=== PATIENT | female | born 1980 | race Caucasian/White ===

== ENCOUNTER 2017-08-15 11:02 | Emergency (ER) | payer BC, OTHER ==
[~2017-08-15] VITALS: Wt 63.6 kg
--- NOTE | 2017-08-15 12:29 | RADRPT ---
PROCEDURE: US Pelvis CLINICAL INDICATION: Vaginal bleeding, . TECHNIQUE: Transabdominal and transvaginal sonographic evaluation of the pelvis was performed. COMPARISON: None available. FINDINGS: Myometrium is heterogeneous in echotexture without fibroids. Endometrium is homogeneous and mildly prominent. No gestational sac identified. Ovaries are normal in size and echotexture. There is a 3.5 x 2.8 x 3.5 cm left ovarian cyst. No free pelvic fluid. MEASUREMENTS: Uterus: 8.4 x 4.4 x 5.2 cm, anteverted. Endometrium: 2.5 mm. Right ovary size: 2.0 x 1.1 x 1.2 cm. Left ovary size: 4.6 x 3.5 x 3.9 cm. IMPRESSION: 1. No evidence of an intrauterine gestation. An early IUP, missed AB or ectopic could have this appe arance. 2. 3.5 x 2.8 x 3.5 cm unilocular left ovarian cyst. Note: Continued surveillance with serial quantitative beta HCGs and follow-up ultrasound may be leticia ropriate. RPTAT: AACC Physician Olvin Date Time Electronically viewed and signed by Physician Olvin on 08/15/2017 12:29 /
--- NOTE | 2017-08-15 13:24 | ERD ---
ER Documentation Chief Complaint Chief Complaint vb, unsure if preg HPI This is a 36-year-old female who is here for vaginal bleeding and think she is . She had a positive test done 2 days ago. She says she is having some vaginal spotting with occasional cramps but no clots no pain now her last period was July 06, 2017. She is a ROS All systems reviewed and are negative except as per history of present illness. Allergies Allergies: Coded Allergies: No Known Allergy (Unverified , 08/15/17) PMhx/Soc Medical and Surgical Hx: pt denies Medical Hx, pt denies Surgical Hx Hx Alcohol Use: No Hx Substance Use: No Hx Tobacco Use: No Smoking Status: Never smoker FmHx Family History: No coronary disease Physical Exam Vitals Vital Signs Date Time Temp Pulse Resp B/P Pulse Ox O2 Delivery O2 Flow Rate FiO2 08/15/17 11:12 98.3 93 20 131/75 100 Physical Exam Const: Well-developed, well-nourished Head: Atraumatic, normocephalic Eyes: Normal Conjunctiva, PERRLA, EOMI, normal sclera, no nystagmus ENT: Normal External Ears, Nose and Mouth, moist mucus membranes. Neck: Full range of motion. No meningismus, no lymphadenopathy. Resp: Clear to auscultation bilaterally, no wheezing, rhonchi, rales Cardio: Regular rate and rhythm, no murmurs, S1 S2 present Abd: Soft, non tender x 4, non distended. Normal bowel sounds, no guarding or rebound, no pulsitile abdominal masses or bruits Skin: No petechiae or rashes, no ecchymosis , no maculopapular rash Back: No midline or flank tenderness Ext: No cyanosis, or edema, FROM x 4, normal inspection, neurovascularly intact x 4 Neur: Awake and alert, STR 5/5 x 4, sensation intact x 4, no focal findings, cerebellum intact Psych: Normal Mood and Affect Results 24 hrs Laboratory Tests Test 08/15/17 11:45 Beta HCG, Quantitative 520.6mIU/ml Procedures/MDM PROCEDURE: US Pelvis CLINICAL INDICATION: Vaginal bleeding, . TECHNIQUE: Transabdominal and transvaginal sonographic evaluation of the pelvis was performed. COMPARISON: None available. FINDINGS: Myometrium is heterogeneous in echotexture without fibroids. Endometrium is homogeneous and mildly prominent. No gestational sac identified. Ovaries are normal in size and echotexture. There is a 3.5 x 2.8 x 3.5 cm left ovarian cyst. No free pelvic fluid. MEASUREMENTS: Uterus: 8.4 x 4.4 x 5.2 cm, anteverted. Endometrium: 2.5 mm. Right ovary size: 2.0 x 1.1 x 1.2 cm. Left ovary size: 4.6 x 3.5 x 3.9 cm. IMPRESSION: 1. No evidence of an intrauterine gestation. An early IUP, missed AB or ectopic could have this appearance. 2. 3.5 x 2.8 x 3.5 cm unilocular left ovarian cyst. Note: Continued surveillance with serial quantitative beta HCGs and follow-up ultrasound may be appropriate. RPTAT: AACC Physician Olvin Date Time Electronically viewed and signed by Garett Blair Physician on 08/15/2017 12: 29 JH/ CC: CUATE KOHLI DO Patient's beta is 520. She likely has an early IUP versus miscarriage. She will have to follow up and get a repeat hCG to assess there is rising or falling in 48 hours Discussed with her vaginally precautions and ectopic morning Departure Diagnosis: Primary Impression: Threatened Condition: Stable Patient Instructions: Possible Miscarriage (Threatened ) CUATE KOHLI DO Aug 15, 2017 13:24
== END 2017-08-15 13:31 | disposition home or self-care (01) ==
LOC: FTE 11:02
DX: O20.0 Threatened abortion (principal); Z3A.00 Weeks of gestation of pregnancy not specified
CPT/HCPCS: 36415; 76801; 76817; 84702; 86900; 86901

== ENCOUNTER 2017-08-24 16:39 | Observation (INO) | payer BC ==
[~2017-08-24] VITALS: Ht 165.1 cm; Wt 64.3 kg
[2017-08-24 17:58] LABS: BASOPHIL # 0.1 10^3/ul (0.0-0.1); BASOPHILS % 0.5 % (0.0-2.0); EOSINOPHILS # 0.2 10^3/ul (0.0-0.5); EOSINOPHILS % 1.4 % (0.0-7.0); HEMATOCRIT 45.2 % (37.0-47.0); HEMOGLOBIN 15.1 g/dl (12.0-16.0); LYMPHOCYTES % 25.7 % (15.0-51.0); MEAN CORPUSCULAR HEMOGLOBIN 30.3 pg (29.0-33.0); MEAN CORPUSCULAR HGB CONC 33.4 g/dl (32.0-37.0); MEAN CORPUSCULAR VOLUME 90.8 fl (82.0-101.0); MEAN PLATELET VOLUME 8.9 fl (7.4-10.4); MONOCYTE # 0.6 10^3/ul (0.3-0.9); MONOCYTES % 5.4 % (0.0-11.0); NEUTROPHIL # 7.8 10^3/ul (1.6-7.5); NEUTROPHILS % 66.7 % (39.0-77.0); PLATELET COUNT 402 10^3/UL (140-415); RED BLOOD COUNT 4.98 10^6/ul (4.20-5.40); RED CELL DISTRIBUTION WIDTH 12.2 % (11.5-14.5); WHITE BLOOD COUNT 11.7 10^3/ul (4.8-10.8)
[2017-08-24] MEDS ORDERED: DEXAMETHASONE 10 MG/ML 1 ML INJ IM ONE (18:00)
[2017-08-24 18:05] LABS: ADD UMIC YES; UR ASCORBIC ACID NEGATIVE (NEGATIVE); UR BACTERIA FEW /HPF (NONE SEEN); UR BILIRUBIN (Dip) NEGATIVE (NEGATIVE); UR BLOOD (Dip) 3+ mg/dL (NEGATIVE); UR CLARITY CLEAR (CLEAR); UR COLOR STRAW (YELLOW); UR GLUCOSE (Dip) NEGATIVE (NEGATIVE); UR KETONES (Dip) NEGATIVE (NEGATIVE); UR LEUKOCYTE ESTERASE (Dip) NEGATIVE Leu/ul (NEGATIVE); UR NITRITE (Dip) NEGATIVE (NEGATIVE); UR RBC 42 /HPF (0-5); UR SPECIFIC GRAVITY (Dip) 1.013 (1.003-1.030); UR TOTAL PROTEIN (Dip) NEGATIVE (NEGATIVE); UR UROBILINOGEN (Dip) NEGATIVE (NEGATIVE)
--- NOTE | 2017-08-24 18:55 | RADRPT ---
PROCEDURE: OB Ultrasound. CLINICAL INDICATION: Positive test. Vaginal bleeding. TECHNIQUE: Ultrasound of the pelvis was performed with transabdominal and transvaginal sonography in the axial and sagittal planes. COMPARISON: No prior study is available for comparison. FINDINGS: There is no intrauterine gestational sac. The uterus measures approximately 6.5 x 4.0 cm. Endometria l thickness is 10 mm. There is a hypoechoic fibroid anteriorly in the uterus measuring 0.8 cm. The right ovary appears normal in size measuring 3.0 x 1.8 x 1.9 cm. There is a hyperechoic nodule in the right ovary measuring 1.7 x 1.8 cm consistent with a probable dermoid. The left ovary measures 4.9 x 3.0 x 3.8 cm. There is a benign-appearing left ovarian cyst measuring 4.5 x 3.0 x 3.5 cm. There are no internal echoes or septations. Color Doppler and pulsed Doppler sonography demonstrate normal flow to the ovaries. There is no other pelvic mass or free fluid. IMPRESSION: 1. No intrauterine gestational sac. If the patient has a positive test, ectopic gestation cannot be excluded. 2. Hypoechoic fibroid anteriorly in the uterus measuring 0.8 cm. 3. Hyperechoic nodule in the right ovary measuring 1.7 x 0.8 cm consistent with a probable dermoid. 4. Benign-appearing left ovarian cyst measuring 4.5 x 3.0 x 3.5 cm. Due to the size, follow-up ultr asound in 6 weeks is advised. RPTAT: QQ .Stefan Travis MD, Date Time Electronically viewed and signed by .Stefan Travis MD, on 08/24/2017 18:54 .R/
[2017-08-24] MEDS ORDERED: ONDANSETRON 4 MG INJ IV PRN (20:00)
[2017-08-24] MEDS ORDERED: ACETAMINOPHEN 325 MG TAB PO PRN (20:00)
[2017-08-24 21:34] VITALS: TEMP 98.3
[2017-08-24 22:00] VITALS: BP 139/73; PULSE 76; RESP 18; Ht 165.1 cm; Wt 64.3 kg
--- NOTE | 2017-08-24 22:15 | HP ---
Date/Time of Note Date/Time of Note DATE: 08/24/17 TIME: 22:12 Assessment/Plan Assessment/Plan Chief Complaint/Hosp Course Vaginal bleeding positive test. HCG non-discriminatory no IUP visualized. Ultrasound nondiagnostic Problems: Assessment/Plan Cannot rule out SAB, versus ectopic Patient will be admitted for observation consider repeat HCG in 12 in 24 hours. If shows 50% or more drop, likely it is a miscarriage otherwise needs to be followed by repeat hCG in 48 hours,, for trend Strict pad count Currently vitals are stable. No evidence of free fluid in the pelvis Plan of care discussed with the patient HPI/ROS Admit Date/Time Admit Date/Time Aug 24, 2017 at 19:54 Hx of Present Illness 36 years old presented with complaint of lower abdominal pain and vaginal light bleeding after 6 weeks and 3 days amenorrhea. Patient reports was unplanned and will was undesired. Had an episode of vaginal bleeding about a week ago which was seen in ED had an ultrasound. That showed no evidence of IUP hCG level. 8 days ago about 500s. Today hCG is 1300s range. Ultrasound showed no clear evidence of IUP. There is a simple 4 x 3 cm right ovarian cyst noted. There is no free fluid in the pelvis. Patient denies any shortness of breath, chest pain, dizziness or lightheadedness. 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 Per patient had D&C and resolved. Denies any history of STD or PID Past Surgical History Past surgical history: None Family History Significant Family History: no pertinent family hx Social History Alcohol Use: none Smoking Status: Never smoker Drug Use: none Exam/Review of Systems Vital Signs Vitals Vital Signs Date Time Temp Pulse Resp B/P Pulse Ox O2 Delivery O2 Flow Rate FiO2 08/24/17 21:34 98.3 89 18 135/88 100 Exam Constitutional: alert, oriented, well developed Psych: nl mood/affect, no complaints Head: atraumatic, normocephalic Eyes: EOMI, nl conjunctiva, nl lids ENMT: nl external ears & nose Neck: supple Respiratory: clear to auscultation Cardiovascular: nl pulses, regular rate and rhythm Gastrointestinal: soft Genitourinary - Female: nl adnexae, other (There is a questionable cervical motion tenderness in movement of the cervix toward the right side noted. No uterine tenderness, no tenderness in adnexa. Speculum examination: Cervix appeared to be 1/2 cm open. Scant amount of blood in the vault. No abnormal vaginal discharge noted.) Extremities: normal pulses Labs Result Diagram: 08/24/17 1746 PROSPER MAYER MD Aug 24, 2017 22:15
[2017-08-24] MEDS ORDERED: morphine 2 MG INJ IV PRN (22:30)
--- NOTE | 2017-08-24 22:58 | ERD ---
ER Documentation Chief Complaint Chief Complaint VAG BLEED AND PELVIC PAIN TODAY(), LMP 07/10/17 HPI 36-year-old female complaining of vaginal bleeding and pelvic pain 1 week. Patient denies any clots. G2 p.o. A1. VAULT KEEPER is Dr. Whitfield. Has a history of ectopic in the past. She has not had an ultrasound to this point. LN July 10, 2017. Denies medical problems. NKDA. Surgical history: Denies. Up-to-date on vaccinations. Social history: Denies ROS All systems reviewed and are negative except as per history of present illness. Allergies Allergies: Coded Allergies: No Known Allergy (Unverified , 08/15/17) PMhx/Soc History of Surgery: No Anesthesia Reaction: No Hx Neurological Disorder: No Hx Respiratory Disorders: No Hx Cardiac Disorders: No Hx Psychiatric Problems: No Hx Miscellaneous Medical Probl: No Hx Alcohol Use: No Hx Substance Use: No Hx Tobacco Use: No Smoking Status: Never smoker Physical Exam Vitals Vital Signs Date Time Temp Pulse Resp B/P Pulse Ox O2 Delivery O2 Flow Rate FiO2 08/24/17 16:42 98.8 88 18 149/93 100 Physical Exam GENERAL: The patient is well-appearing, well-nourished, in no acute distress CHEST: Clear to auscultation bilaterally. There are no rales, wheezes or rhonchi. HEART: Regular rate and rhythm. No murmurs, clicks, rubs or gallops. No S3 or S4. ABDOMEN: Nondistended. Tender to palpation diffusely over the lower pelvis. No lateralized tenderness to palpation. Normoactive bowel sounds. BACK: No midline or flank tenderness. Result Diagram: 08/24/17 1746 Results 24 hrs Laboratory Tests Test 08/24/17 17:46 White Blood Count 11.710^3/ul Red Blood Count 4.9810^6/ul Hemoglobin 15.1g/dl Hematocrit 45.2% Mean Corpuscular Volume 90.8fl Mean Corpuscular Hemoglobin 30.3pg Mean Corpuscular Hemoglobin Concent 33.4g/dl Red Cell Distribution Width 12.2% Platelet Count 76450^3/UL Mean Platelet Volume 8.9fl Neutrophils % 66.7% Lymphocytes % 25.7% Monocytes % 5.4% Eosinophils % 1.4% Basophils % 0.5% Nucleated Red Blood Cells % 0.0/100WBC Neutrophils # 7.810^3/ul Lymphocytes # 3.010^3/ul Monocytes # 0.610^3/ul Eosinophils # 0.210^3/ul Basophils # 0.110^3/ul Nucleated Red Blood Cells # 0.010^3/ul Urine Color STRAW Urine Clarity CLEAR Urine pH 7.0 Urine Specific [place] 1.013 Urine Ketones NEGATIVEmg/dL Urine Nitrite NEGATIVEmg/dL Urine Bilirubin NEGATIVEmg/dL Urine Urobilinogen NEGATIVEmg/dL Urine Leukocyte Esterase NEGATIVELeu/ul Urine Microscopic RBC 42/HPF Urine Microscopic WBC 2/HPF Urine Bacteria FEW/HPF Urine Hemoglobin 3+mg/dL Urine Glucose NEGATIVEmg/dL Urine Total Protein NEGATIVEmg/dl Beta HCG, Quantitative 1386.3mIU/ml Current Medications Medications (Trade) Dose Ordered Sig/Huy Route PRN Reason Start Time Stop Time Status Last Admin Dose Admin Dexamethasone (Decadron) 10 mg ONCE ONCE IM 08/24/17 18:00 08/24/17 18:00 DC Procedures/MDM DIAGNOSTIC IMAGING REPORT Patient: ZHAO URRUTIA : 1980 Age: 36 Sex: F MR #: [id number] DOS: 08/24/17 1736 Ordering MD: RANI LIMA PA-C Location: [facility] Room/Bed: PROCEDURE: OB Ultrasound. CLINICAL INDICATION: Positive test. Vaginal bleeding. TECHNIQUE: Ultrasound of the pelvis was performed with transabdominal and transvaginal sonography in the axial and sagittal planes. COMPARISON: No prior study is available for comparison. FINDINGS: There is no intrauterine gestational sac. The uterus measures approximately 6.5 x 4.0 cm. Endometrial thickness is 10 mm. There is a hypoechoic fibroid anteriorly in the uterus measuring 0.8 cm. The right ovary appears normal in size measuring 3.0 x 1.8 x 1.9 cm. There is a hyperechoic nodule in the right ovary measuring 1.7 x 1.8 cm consistent with a probable dermoid. The left ovary measures 4.9 x 3.0 x 3.8 cm. There is a benign-appearing left ovarian cyst measuring 4.5 x 3.0 x 3.5 cm. There are no internal echoes or septations. Color Doppler and pulsed Doppler sonography demonstrate normal flow to the ovaries. There is no other pelvic mass or free fluid. IMPRESSION: 1. No intrauterine gestational sac. If the patient has a positive test, ectopic gestation cannot be excluded. 2. Hypoechoic fibroid anteriorly in the uterus measuring 0.8 cm. 3. Hyperechoic nodule in the right ovary measuring 1.7 x 0.8 cm consistent with a probable dermoid. 4. Benign-appearing left ovarian cyst measuring 4.5 x 3.0 x 3.5 cm. Due to the size, follow-up ultrasound in 6 weeks is advised. ER Course: Dr. lCark was consulted and visited patient at bedside. There is concern for possible ectopic given patient does have an increased beta quant from her previous visit 8 days ago. Patient has pelvic masses noted on ultrasound and no intrauterine . Patient will be admitted for recheck of beta quant to determine if her levels are increasing or decreasing based on possible ectopic or miscarriage. Patient will be admitted. Vitals are stable MDM: 36-year-old female complaining of bleeding with positive test. Patient does not have intrauterine patient on ultrasound and has elevated beta quant levels so I cannot rule out ectopic at this time. Patient is admitted under the care of Dr. Clark for repeat beta quant levels and further evaluation. Patient is stable. Vital signs are stable. I have low suspicion for a ruptured ectopic . I have low suspicion for other acute abdominal emergencies at this time. Exams are non-concerning. Departure Diagnosis: Primary Impression: Vaginal bleeding Ruled Out: Ectopic Condition: Serious AISSATOU LIMA PA-C Aug 24, 2017 22:58
[2017-08-25] MEDS: DEXTROSE 5%-LR 1,000 ML IV SCH ×5 (00:04→20:47)
[2017-08-25 02:17] VITALS: BP 102/57; RESP 18
[2017-08-25 05:23] LABS: BASOPHILS % 0.4 % (0.0-2.0); EOSINOPHILS # 0.2 10^3/ul (0.0-0.5); EOSINOPHILS % 1.6 % (0.0-7.0); HEMATOCRIT 39.1 % (37.0-47.0); HEMOGLOBIN 13.2 g/dl (12.0-16.0); LYMPHOCYTES % 31.3 % (15.0-51.0); MEAN CORPUSCULAR HEMOGLOBIN 30.3 pg (29.0-33.0); MEAN CORPUSCULAR HGB CONC 33.8 g/dl (32.0-37.0); MEAN CORPUSCULAR VOLUME 89.9 fl (82.0-101.0); MEAN PLATELET VOLUME 9.4 fl (7.4-10.4); MONOCYTE # 0.6 10^3/ul (0.3-0.9); MONOCYTES % 6.4 % (0.0-11.0); NEUTROPHIL # 5.7 10^3/ul (1.6-7.5); PLATELET COUNT 356 10^3/UL (140-415); RED BLOOD COUNT 4.35 10^6/ul (4.20-5.40); RED CELL DISTRIBUTION WIDTH 11.9 % (11.5-14.5); WHITE BLOOD COUNT 9.4 10^3/ul (4.8-10.8)
[2017-08-25 06:00] VITALS: BP 110/71; RESP 18
[2017-08-25 07:55] VITALS: BP 103/62; RESP 21
--- NOTE | 2017-08-25 14:40 | QN ---
Documentation Comment August 25, 2017 Hospital note. This patient is 36 years old 2 para 0 who was admitted in the hospital yesterday by the laborist due to slight abdominal pain and the beta-hCG level of a 1300. On ultrasound study yesterday, there was no evidence of intra-uterine as well as ectopic . The repeat beta-hCG level 8 hours later was basically the same . Plan is to check the level this evening around 7 which would be close to 24 hours apart from the first exam On physical examination she is a well-developed well-nourished lady is not complaining of any pain. Her abdomen is soft no tenderness no rebound to tenderness no CVA tenderness . On pelvic examination slight vaginal discharge, , Normal cervix , uterus is top normal size. Absolutely no evidence of cervical motion tenderness,no tenderness of any adnexa or the uterus itself Laboratory Tests Test 08/24/17 17:46 08/25/17 04:27 White Blood Count 11.710^3/ul 9.410^3/ul Red Blood Count 4.9810^6/ul 4.3510^6/ul Hemoglobin 15.1g/dl 13.2g/dl Hematocrit 45.2% 39.1% Mean Corpuscular Volume 90.8fl 89.9fl Mean Corpuscular Hemoglobin 30.3pg 30.3pg Mean Corpuscular Hemoglobin Concent 33.4g/dl 33.8g/dl Red Cell Distribution Width 12.2% 11.9% Platelet Count 11900^3/UL 19109^3/UL Mean Platelet Volume 8.9fl 9.4fl Neutrophils % 66.7% 60.0% Lymphocytes % 25.7% 31.3% Monocytes % 5.4% 6.4% Eosinophils % 1.4% 1.6% Basophils % 0.5% 0.4% Nucleated Red Blood Cells % 0.0/100WBC 0.0/100WBC Neutrophils # 7.810^3/ul 5.710^3/ul Lymphocytes # 3.010^3/ul 3.010^3/ul Monocytes # 0.610^3/ul 0.610^3/ul Eosinophils # 0.210^3/ul 0.210^3/ul Basophils # 0.110^3/ul 0.010^3/ul Nucleated Red Blood Cells # 0.010^3/ul 0.010^3/ul Urine Color STRAW Urine Clarity CLEAR Urine pH 7.0 Urine Specific [place] 1.013 Urine Ketones NEGATIVEmg/dL Urine Nitrite NEGATIVEmg/dL Urine Bilirubin NEGATIVEmg/dL Urine Urobilinogen NEGATIVEmg/dL Urine Leukocyte Esterase NEGATIVELeu/ul Urine Microscopic RBC 42/HPF Urine Microscopic WBC 2/HPF Urine Bacteria FEW/HPF Urine Hemoglobin 3+mg/dL Urine Glucose NEGATIVEmg/dL Urine Total Protein NEGATIVEmg/dl Beta HCG, Quantitative 1386.3mIU/ml 1346.1mIU/ml Serum HCG, Qualitative POSITIVE Current Medications Medications (Trade) Dose Ordered Sig/Huy Route PRN Reason Start Time Stop Time Status Last Admin Dose Admin Dexamethasone (Decadron) 10 mg ONCE ONCE IM 08/24/17 18:00 08/24/17 18:00 DC Ondansetron HCl (Zofran Inj) 4 mg BRIDGE ORDER PRN IV NAUSEA AND/OR VOMITING 08/24/17 20:00 08/24/17 22:53 DC Acetaminophen 650 mg 650 mg ER BRIDGE PRN PO MILD PAIN/FEVER 08/24/17 20:00 08/24/17 22:53 DC Dextrose/Lactated Ringer's (D5-Lr) 1,000 ml @ 125 mls/hr Q8H IV 08/24/17 22:30 08/25/17 10:31 Morphine Sulfate (morphine) 2 mg Q3H PRN IV pain 08/24/17 22:30 08/25/17 00:05 With these finding the chance of ectopic is fairly low. However at this point as suggested by the admitting laborist, will repeat the beta hCG this evening to decide whether it is feasible to go ahead with a diagnostic laparoscopy to rule out ectopic . These findings as well as the plan of care was discussed with the patient and her courtroom reporter who speaks perfect Lithuanian. They understand all of the alternative of this case. ELIS CARDENAS MD Aug 25, 2017 14:40
[2017-08-25 14:54] VITALS: BP 101/60; RESP 18
[2017-08-25 20:00] VITALS: BP 103/58; RESP 18
--- NOTE | 2017-08-25 21:22 | QN ---
Documentation Comment u/s r36 y.o A1(ect) lmp jul 06 vaginal bleeding with abd cramping pain f/u with HCG 08/15/17 500 08/24 1386 08/25/17 1346 08/25/17 1521 13hrs after last one VSS with Hx of previous ectopic and trend of HCG level cannot exclude another ectopic u/s Rt ovary hyperechoic nodule suggesting dermoid Lt ovary 4,5cm simple cyst Plan NPO repeat HCG and pelvic u/s in am ANKIT BARROS MD Aug 25, 2017 21:15
[2017-08-26] VITALS (27 sets, daily range): BP systolic 100–124; BP diastolic 52–75; PULSE 74–95; RESP 11–20
[2017-08-26] MEDS: DEXTROSE 5%-LR 1,000 ML IV SCH ×4 (04:42→22:30)
[2017-08-26] MEDS ORDERED: MEPERIDINE 25 MG INJ IV PRN (10:00)
[2017-08-26] MEDS ORDERED: OXYCODONE/ACETAMINOPHEN (5/325) TAB PO PRN ×2 (10:00)
[2017-08-26] MEDS ORDERED: HYDROmorphONE (0.2 MG/ML) 10ML SYG IV PRN ×2 (10:00)
[2017-08-26] MEDS ORDERED: ONDANSETRON 4 MG INJ IV PRN (10:00)
[2017-08-26] MEDS ORDERED: METOCLOPRAMIDE 10 MG INJ IV PRN (10:00)
[2017-08-26] MEDS ORDERED: DIPHENHYDRAMINE 50 MG INJ IV PRN (10:00)
[2017-08-26] MEDS ORDERED: EPHEDrine SULFATE 50 MG/5 ML SYG IV PRN (10:00)
[2017-08-26] MEDS ORDERED: LABETALOL HCL 20MG INJ IV PRN (10:00)
[2017-08-26] MEDS ORDERED: FENTAnyl 50 MCG/ML VIAL IV PRN ×2 (10:00)
[2017-08-26] MEDS ORDERED: MIDAZOLAM 1 MG/ML 2 ML INJ IV PRN (10:00)
[2017-08-26] MEDS ORDERED: hydrALAzine 20 MG INJ IV PRN (10:00)
[2017-08-26] MEDS ORDERED: SUCCINYLCHOLINE CHLORIDE 100 MG/5 ML SYG IV ONE (10:04)
[2017-08-26] MEDS ORDERED: PROPOFOL 20 ML ONE (10:04)
[2017-08-26] MEDS ORDERED: NEOSTIGMINE 3 MG/3 ML SYRINGE ONE (10:04)
[2017-08-26] MEDS ORDERED: GLYCOPYRROLATE 0.4 MG INJ ONE ×2 (10:04→11:41)
[2017-08-26] MEDS ORDERED: ROCURONIUM 50 MG INJ ONE (10:04)
[2017-08-26] MEDS ORDERED: LIDOCAINE 2% (SDV) 5 ML INJ ONE (10:04)
[2017-08-26] MEDS ORDERED: MEPERIDINE 100 MG INJ ONE (10:04)
[2017-08-26] MEDS ORDERED: METOCLOPRAMIDE 10 MG INJ ONE (10:25)
[2017-08-26] MEDS ORDERED: CEFAZOLIN 1 GM INJ ONE (10:25)
[2017-08-26] MEDS ORDERED: ONDANSETRON 4 MG INJ ONE (10:25)
--- NOTE | 2017-08-26 10:26 | HPN ---
Date/Time of Note Date/Time of Note DATE: 08/26/17 TIME: 10:26 Interval H&P Admission Note Pt. seen H&P reviewed: No system changes CATRACHITO ÁLVAREZ M.D. Aug 26, 2017 10:26
--- NOTE | 2017-08-26 11:42 | OPPN ---
Date/Time of Note Date/Time of Note DATE: 08/26/17 TIME: 11:41 Operative Report Planned Procedure Procedure date Aug 26, 2017 Procedure(s) D&C&Suction and Operative laparoscopy left salpingectomy Performed by see signature line Fish Processor none Anesthesiologist: MONTY FONSECA MD Pre-procedure diagnosis Ectopic Anesthesia Type: general Post-Procedure Post-procedure diagnosis left Ectopic Findings Live Baby [], Apgars [] and [], weight [], position [], [] presentation []cord. Estimated Blood Loss: 0 - 10 mls Specimen(s) Left Ectopic ,EMT Grafts/Implant(s) none Complication(s) none CATRACHITO ÁLVAREZ M.D. Aug 26, 2017 11:42
[2017-08-26] MEDS: FENTAnyl 50 MCG/ML VIAL IV PRN ×2 (11:55→12:06)
[2017-08-26] MEDS: HYDROmorphONE (0.2 MG/ML) 10ML SYG IV PRN ×2 (11:56→12:09)
--- NOTE | 2017-08-26 13:23 | OPR ---
DATE OF OPERATION: 08/24/2017 OPERATION PERFORMED: D and C and suction operative laparoscopy, left salpingectomy and removal of l eft ectopic SURGEON: Dr. Perez. ANESTHESIOLOGIST: Dr. Ramirez. ANESTHESIA: General. COMPLICATIONS: None. ESTIMATED BLOOD LOSS: Less than 10 mL. DESCRIPTION OF PROCEDURE: The patient was taken to the operating room where general anesthesia was found to be adequate. The patient was placed in dorsal lithotomy position. After prep and drape, a weighted speculum was placed inside the vaginal vault. Anterior lip of the cervix was grasped by s jordan-tooth tenaculum. Cervix was dilated by Larsen dilators. Intrauterine cavity was suctioned wit h a suction size 6 then sharp curettage of endometrial cavity was done. Hemostasis achieved. HUMI was inserted in place, then attention was turned to abdominal field. Then, a 1 cm incision was made below the umbilicus. First trocar was inserted under direct visualization of the camera. A transv erse second and third trocar was inserted through both sides of the first trocar 8 to 10 cm from the umbilical trocar under direct visualization of the camera. Scant blood in the cul-de-sac was notic ed there. Left ectopic an ectopic in the left fallopian tube was noted. There was a small nodule on the right tube at the mesentery of the tube. Both ovaries were normal, using a gyrus, left ectopic was removed and left salpingectomy was done. The specimen was remov ed was sent to Pathology. Then, using the scissors a small nodule on the right tube was opened. Cl ear fluid came out, then hemostasis achieved. Patient and instruments removed. Gas was removed and trocars removed under direct visualization of the camera. Skin was closed on the right side incisi on using 0 Vicryl and then 3-0 Monocryl sutures and on the other 2 incisions using 3-0 Monocryl sutu res. Dermabond was placed on top of the incision. The patient tolerated the procedure well and was transferred to recovery room in stable condition. There was no complication regarding this surgery . Dictated By: CATRACHITO REINOSO/JOSELITO Conf#: [id number] DID#: [id number]
--- NOTE | 2017-08-26 13:27 | HP ---
DATE OF ADMISSION: 08/24/2017 HISTORY OF PRESENT ILLNESS: The patient is a 36 year old, 2, para 1. Suspect diagnosis of left ectopic , but HCGs plateauing. The patient denies any abdominal pain,scant spoting. Ultrasound was removed. Ultrasound PHYSICAL EXAMINATION: GENERAL: Normal. ABDOMEN: Normal. GENITAL: Normal. Beta hCG was plateauing at around 11,000. ASSESSMENT AND PLAN: 11,000 and continuous observation versus methotrexate therapy versus D and C a nd suction and operative laparoscopy. Discussed with the patient extensively the details in the pre sence of a [place] testicular nurse, the patient understood the concept and desires to have a D and C and suction operative laparoscopy. Risks and benefits were discussed with the patient. The patie nt signed the consent and was taken to the operating room. Dictated By: CATRACHITO REINOSO/JOSELITO Conf#: [id number] DID#: [id number]
[2017-08-27 02:33] VITALS: BP 96/53; RESP 20
[2017-08-27] MEDS: DEXTROSE 5%-LR 1,000 ML IV SCH (04:32)
[2017-08-27 08:05] VITALS: BP 111/59; RESP 18
--- NOTE | 2017-08-27 10:47 | DS ---
Date/Time of Note Date/Time of Note DATE: 08/27/17 TIME: 10:45 Discharge Summary Admission/Discharge Info Admit Date/Time Aug 24, 2017 at 19:54 Discharge Date/Time 08/27 Discharge Diagnosis Ectopic s/p D&C, laparoscopic L. salpingectomy Hospital Course Patient admitted to ectopic and underwent D&C, laparoscopic L. salpingectomy. Postoperatively, she recovered well. AFVSS. Exam appropriate. Discharge home on POD1. Follow-up Plan F/u with senior economist as scheduled in 2-3 weeks Primary Care Provider Care Physician No Primary Time spent on discharge: < 30 minutes LEE COHEN Aug 27, 2017 10:47
--- NOTE | 2017-08-27 10:49 | PN ---
Date/Time of Note Date/Time of Note DATE: 08/27/17 TIME: 10:47 Assessment/Plan VTE Prophylaxis VTE Prophylaxis Intervention: ambulation Lines/Catheters IV Catheter Type (from [facility]): Saline Lock Urinary Cath still in place: No Assessment/Plan Chief Complaint/Hosp Course Patient admitted to ectopic and underwent D&C, laparoscopic L. salpingectomy. Postoperatively, she recovered well. AFVSS. Exam appropriate. Discharge home on POD1. Problems: Assessment/Plan POD1 s/p D&C, lsc L. salpingectomy -discharge home -f/u with review engineer as scheduled Subjective 24 Hr Interval Summary Free Text/Dictation Patient without complaints. Questions answered. Exam/Review of Systems Vital Signs Vitals Vital Signs Date Time Temp Pulse Resp B/P Pulse Ox O2 Delivery O2 Flow Rate FiO2 08/27/17 08:05 98.0 75 18 111/59 98 08/26/17 17:30 Room Air Intake and Output 08/26/17 08/26/17 08/27/17 15:00 23:00 07:00 Intake Total 1300 ml 960 ml 500 ml Output Total 20 ml 900 ml 900 ml Balance 1280 ml 60 ml -400 ml Exam Gen: NAD Abd: I-C/D/I Results Result Diagram: 08/25/17 0427 Medications Medications Current Medications Dextrose/Lactated Ringer's (D5-Lr) 1,000 ml @ 125 mls/hr Q8H IV Last administered on 08/27/17 04:32; Admin Dose 125 MLS/HR; Start 08/24/17 at 22: 30 Morphine Sulfate (morphine) 2 mg Q3H PRN IV pain Last administered on 00:05; Admin Dose 2 MG; Start 08/24/17 at 22:30 LEE COHEN Aug 27, 2017 10:49
== END 2017-08-27 11:47 | disposition home or self-care (01) ==
LOC: FTE 16:39 → MS1 19:54
PROVIDERS: ADMIT Obstetrics & Gynecology Obstetrics; ATTEND Obstetrics & Gynecology Obstetrics
DX: O00.102 Left tubal pregnancy without intrauterine pregnancy (principal); N71.0 Acute inflammatory disease of uterus; I96 Gangrene, not elsewhere classified
CPT/HCPCS: 58120; 59151; 76801; 76817; 81001; 84144; 84702; 84703; 85025; 86900; 86901; 88305; 99217; 99285; G0378; J0690; J1170; J2175; J2270; J2405; J2710; J2765; J3010; J7121